=== PATIENT | male | born 1990 | race Caucasian/White ===

== ENCOUNTER 2017-04-19 14:46 | Emergency (ER) | payer SELFPAY ==
[2017-04-19 14:59] VITALS: BP 156/96
--- NOTE | 2017-04-19 15:02 | Emergency Department Report ---
Stated Complaint: FEEL OF FAST HEART RATE Time Seen by Provider: 04/19/17 14:56 - HPI History of Present Illness: PT states he feels like his heart is beating fast since this morning. PT's visitor states pt did drink some beer last night. - ROS Review of Systems: - fever - chest pain + abd pain - Exam Physical Exam: male no acute distress not tachycardic MSE screening note: Focused history and physical exam performed. Due to findings the following was ordered: lab, ekg ED Disposition for MSE Condition: Stable
[2017-04-19 15:44] LABS: Alanine Aminotransferase 71 units/L (7-56); Albumin 4.4 g/dL (3.9-5); Albumin/Globulin Ratio 1.3 %; Alkaline Phosphatase 72 units/L (35-129); Anion Gap 19 mmol/L; BUN/Creatinine Ratio 16.25; Blood Urea Nitrogen 13 mg/dL (9-20); Calcium 9.4 mg/dL (8.4-10.2); Carbon Dioxide 23 mmol/L (22-30); Chloride 100.9 mmol/L (98-107); Glucose 132 mg/dL (75-100); Potassium 3.9 mmol/L (3.6-5.0); Sodium 139 mmol/L (137-145); Total Protein 7.9 g/dL (6.3-8.2)
[2017-04-19 15:47] LABS: Eosinophils % (Auto) 3.2 % (0.0-4.3); Hemoglobin 15.5 gm/dl (11.8-15.2); Mean Corpuscular HGB Conc 34 % (32-34); Mean Corpuscular Hemoglobin 30 pg (28-32); Mean Corpuscular Volume 90 fl (84-94); Platelet Count 279 K/mm3 (140-440); Red Blood Count 5.09 M/mm3 (3.65-5.03); Red Cell Distribution Width 13.4 % (13.2-15.2)
--- NOTE | 2017-04-19 16:33 | XRay Report ---
ROUTINE CHEST, TWO VIEWS: Palpitations. PA and lateral views demonstrate the heart and mediastinal contour to be of normal size and shape. The lungs are clear and fully expanded and the soft tissues and bony structures are normal. IMPRESSION: Normal study.
--- NOTE | 2017-04-23 00:05 | ED Elopement Review ---
ED Pt Elopement review - Results review Lab results: Laboratory Tests 04/19/17 04/19/17 04/19/17 15:10 15:10 15:10 WBC 10.0 RBC 5.09 H Hgb 15.5 H Hct 46.0 H MCV 90 MCH 30 MCHC 34 RDW 13.4 Plt Count 279 Lymph % (Auto) 36.7 H [place] % (Auto) 6.6 Eos % (Auto) 3.2 Baso % (Auto) 1.0 Lymph # 3.7 [place] # 0.7 Eos # 0.3 Baso # 0.1 Seg Neutrophils % 52.5 Seg Neutrophils # 5.2 Sodium 139 Potassium 3.9 Chloride 100.9 Carbon Dioxide 23 Anion Gap 19 BUN 13 Creatinine 0.8 Estimated GFR > 60 BUN/Creatinine Ratio 16.25 Glucose 132 H Calcium 9.4 Total Bilirubin 0.30 AST 35 ALT 71 H Alkaline Phosphatase 72 Troponin T < 0.010 Total Protein 7.9 Albumin 4.4 Albumin/Globulin Ratio 1.3 Lipase 45 - Call Back decision Pt Call Back Decision: Pt to F/U with PMD
== END 2017-04-19 19:00 | disposition left against medical advice (07) ==
LOC: ED 14:46
DX: R00.2 Palpitations (principal); Z53.21 Procedure and treatment not carried out due to patient leaving prior to being seen by health care provider
CPT/HCPCS: 36415; 71020; 80053; 83690; 84484; 85025; 93005; 93010